=== PATIENT | female | born 1970 | race African-American/Black ===

== ENCOUNTER 2019-02-28 14:47 | Emergency (ER) | payer SELFPAY ==
[2019-02-28 15:11] VITALS: BP 151/85
== END 2019-02-28 15:12 | disposition left against medical advice (07) ==
LOC: ER 14:47
DX: Z53.21 Procedure and treatment not carried out due to patient leaving prior to being seen by health care provider (principal)

== ENCOUNTER 2019-03-01 08:01 | Emergency (ER) | payer OTHER ==
[2019-03-01 09:26] LABS: INTERNATIONAL RATION (INR) 0.97; PROTHROMBIN TIME 12.9 SEC (11.4-15.4)
[2019-03-01 09:28] LABS: ABSOLUTE EOSINOPHILS # (AUTO) 0.1 10^3/uL (0.0-0.6); ABSOLUTE LYMPHOCYTES (AUTO) 2.2 10^3/uL (0.5-4.7); ABSOLUTE MONOCYTES (AUTO) 0.4 10^3/uL (0.1-1.4); ABSOLUTE NEUT (AUTO) 1.8 10^3/uL (1.7-8.2); BASOPHILS % (AUTO) 0.9 % (0-2); EOSINOPHILS % (AUTO) 2.3 % (0-6); HEMATOCRIT 37.1 % (36.0-47.0); HEMOGLOBIN 12.8 g/dL (12.0-15.5); LYMPHOCYTES % (AUTO) 48.6 % (13-45); MEAN CORPUSCULAR HEMOGLOBIN 31.2 pg (27.0-33.4); MEAN CORPUSCULAR HGB CONC 34.6 g/dL (32.0-36.0); MEAN CORPUSCULAR VOLUME 90 fl (80-97); MONOCYTES % (AUTO) 9.1 % (3-13); PLATELET COUNT 231 10^3/uL (150-450); RED BLOOD COUNT 4.11 10^6/uL (3.72-5.28); SEGMENTED NEUTROPHILS % (AUTO) 39.1 % (42-78); TOTAL CELLS COUNTED % (AUTO) 100 %; WHITE BLOOD COUNT 4.5 10^3/uL (4.0-10.5)
[2019-03-01 09:37] LABS: ALBUMIN 4.4 g/dL (3.5-5.0); ALKALINE PHOSPHATASE 32 U/L (38-126); ANION GAP 12 (5-19); ASPARTATE AMINO TRANSFERASE 20 U/L (14-36); BILIRUBIN,DIRECT 0.1 mg/dL (0.0-0.4); BILIRUBIN,TOTAL 0.6 mg/dL (0.2-1.3); BLOOD UREA NITROGEN 10 mg/dL (7-20); CALCIUM 9.6 mg/dL (8.4-10.2); CARBON DIOXIDE 26 mmol/L (22-30); CHLORIDE 100 mmol/L (98-107); GLUCOSE 177 mg/dL (75-110); POTASSIUM 4.2 mmol/L (3.6-5.0); TOTAL PROTEIN 7.5 g/dL (6.3-8.2)
--- NOTE | 2019-03-01 11:14 | ER Document Report ---
ED General - General Chief Complaint: High Blood Pressure Stated Complaint: BLOOD PRESSURE ISSUES Time Seen by Provider: 03/01/19 10:03 TRAVEL OUTSIDE OF THE [place] IN LAST 30 DAYS: No - HPI Notes: 48-year-old female with history of type 2 diabetes on metformin with complaints of elevated blood pressure for the past 2 days. [place] pressure was 170 systolic. She states that she came here and her blood pressure was 130 systolic so she went home. She states that this morning she checked her blood pressure and it was 199/117. She states that concerned her and she decided to come to the emergency department. She denies any difficulty speaking, weakness in any extremity, difficulty ambulating, speech problem, or any other focal neurological deficit. She has had off-and-on headache for the past 3 days. She states that she has been working to control her diabetes for the past several months and her most recent A1c was 7.3. She was making a considerable effort to do this because she was considering having an ablation for atrial fib. She states that over the summer she had an episode of atrial fib and passed out and was hospitalized for it. She states that when she went for an ablation she was told she could not have it into her sugar was under better control. At that time she was on metoprolol and Eliquis. She states that her diabetes became much more controlled but she opted not to have the ablation. She also has taken herself off of her metoprolol and Eliquis. She states that she has been off of the metoprolol for about 2 months. She states that she does not really feel like it helped her atrial fib very much as she would go in and out of episodes. She is not on any other blood pressure medicine currently. Her blood pressure since arrival has been 140s. She denies any chest pain, shortness of breath, leg swelling, passing out, palpitations, heart racing. - Related Data Allergies/Adverse Reactions: No Known Allergies Allergy (Unverified 03/01/19 09:08) Home Medications: metformin Past Medical History - General Information source: Patient - Social History Smoking Status: Never Smoker Frequency of alcohol use: None Drug Abuse: None Lives with: Family Family History: DM, Hypertension Patient has suicidal ideation: No Patient has homicidal ideation: No Review of Systems - Review of Systems Constitutional: denies: Chills, Fever EENT: No symptoms reported Cardiovascular: denies: Chest pain, Palpitations, Heart racing, Syncope, Dizziness, Lightheaded, Edema Respiratory: denies: Cough, Short of breath Gastrointestinal: denies: Abdominal pain, Diarrhea, Nausea, Vomiting Genitourinary: No symptoms reported Female Genitourinary: No symptoms reported Musculoskeletal: No symptoms reported Skin: No symptoms reported Neurological/Psychological: Headaches. denies: Confusion, Weakness, Gait changes, Loss of power, Lost consciousness, Speech impairment, Numbness, Tingling -: Yes All other systems reviewed and negative Physical Exam - Vital signs Vitals: Temp Pulse Resp BP Pulse Ox 97.6 F 94 16 159/91 H 100 03/01/19 08:05 03/01/19 08:05 03/01/19 08:05 03/01/19 08:05 03/01/19 08:05 Interpretation: Hypertensive - General General appearance: Appears well, Alert In distress: None - HEENT Head: Normocephalic, Atraumatic Eyes: Normal Pupils: PERRL Ears: Normal External canal: Normal Tympanic membrane: Normal Sinus: Normal Nasal: Normal Mouth/Lips: Normal Mucous membranes: Normal Pharynx: Normal Neck: Normal, Supple - Respiratory Respiratory status: No respiratory distress Chest status: Nontender Breath sounds: Normal Chest palpation: Normal - Cardiovascular Rhythm: Regular Heart sounds: Normal auscultation Murmur: No Notes: no leg edema - Abdominal Inspection: Normal Distension: No distension Bowel sounds: Normal Tenderness: Nontender Organomegaly: No organomegaly - Extremities General upper extremity: Normal inspection, Nontender, Normal color, Normal ROM, Normal temperature General lower extremity: Normal inspection, Nontender, Normal color, Normal ROM, Normal temperature, Normal weight bearing - Neurological Neuro grossly intact: Yes Cognition: Normal Orientation: AAOx4 Outlook Coma Scale Eye Opening: Spontaneous Outlook Coma Scale Verbal: Oriented Nikita Coma Scale Motor: Obeys Commands Nikita Coma Scale Total: 15 Speech: Normal Cranial nerves: Normal. No: Facial palsy, Forehead sparing, Gaze palsy, Sensory deficit, Tongue deviation Cerebellar coordination: Normal. 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 No: Pronator drift Sensory: Normal - Psychological Associated symptoms: Normal affect, Normal mood - Skin Skin Temperature: Warm Skin Moisture: Dry Skin Color: Normal Course - Re-evaluation Re-evalutation: 03/01/19 11:31 IMpression: HTN, Diabetes. Had a lengthy conversation with patient about options to start her on HTN meds. Offered to restart her metoprolol but she would like to try something else. Will start on 5 mg of Norvasc and have her keep a BP diary. Will also have her follow with PCP at [facility] in [place] for further adjustment. Gave her strict precautions to return if any worsening symptoms -- in particular focal neuro deficits. She in not in Atrial Fibrillation today. She has taken herself off her Metoprolol and Eliquis. I have suggested she take a daily aspirin until she speaks further with her PCM. She agrees with the plan. Sent Norvasc to [facility] [address]. - Vital Signs Vital signs: Temp Pulse Resp BP Pulse Ox 97.6 F 94 16 133/99 H 100 03/01/19 08:41 03/01/19 08:05 03/01/19 08:41 03/01/19 08:37 03/01/19 08:41 - Laboratory Result Diagrams: 03/01/19 09:06 03/01/19 09:06 Laboratory results interpreted by me: 03/01/19 03/01/19 09:06 09:06 Lymph % (Auto) 48.6 H Seg Neutrophils % 39.1 L Glucose 177 H Alkaline Phosphatase 32 L - EKG Interpretation by [facility] EKG shows normal: Sinus rhythm Rate: Normal Rhythm: NSR When compared to previous EKG there are: No significant change Additional EKG results interpreted by me: 03/01/19 no STEMI Discharge - Discharge Clinical Impression: Elevated blood pressure reading Diabetes Qualifiers: Diabetes mellitus type: type 2 Diabetes mellitus lobsterman insulin use: without prison use Condition: Stable Disposition: HOME, SELF-CARE Instructions: Calcium Channel Blockers ([facility]) Additional Instructions: TAKE NORVASC DAILY. KEEP A BLOOD PRESSURE DIARY. FOLLOW WITH PRIMARY CARE IN [place] IN THE NEXT WEEK. RETURN IF ANY FOCAL NEUROLOGICAL DIFFICULTIES. RETUR N IF ANY OTHER CONCERNS. Prescriptions: Amlodipine Besylate [Norvasc 5 mg Tablet] 5 mg PO DAILY #15 tablet
[2019-03-01 11:28] VITALS: BP 130/87
--- NOTE | 2019-03-01 17:01 | EKG REPORT ---
SEVERITY:- ABNORMAL ECG - SINUS RHYTHM PROBABLE LEFT ATRIAL ABNORMALITY POOR R WAVE PROGRESSION ANT LEADS AND NONSPECIFIC ST CHANGES. : Confirmed by: Hector Tolliver MD 01-Mar-2019 17:01:06
== END 2019-03-01 11:33 | disposition home or self-care (01) ==
LOC: ER 08:01
DX: I10 Essential (primary) hypertension (principal); T44.7X6A Underdosing of beta-adrenoreceptor antagonists, initial encounter; Z91.128 Patient's intentional underdosing of medication regimen for other reason; Z91.14 Patient's other noncompliance with medication regimen; I48.91 Unspecified atrial fibrillation; T45.516A Underdosing of anticoagulants, initial encounter; E11.9 Type 2 diabetes mellitus without complications; Z79.84 Long term (current) use of oral hypoglycemic drugs; R51 Headache
CPT/HCPCS: 36415; 80053; 85025; 85610; 93005; 93010; 99283